=== PATIENT | male | born 1965 | race Caucasian/White ===

== ENCOUNTER 2018-09-01 07:15 | Observation (INO) | payer OTHER ==
[~2018-09-01] VITALS: Ht 172.7 cm; Wt 146.1 kg
--- NOTE | ~2018-09-01 | H ---
[facility] [place] [address] HISTORY AND PHYSICAL Name: DORIE OLIVER Room #: REG Nimisha Barrientos.#: [id number] Admission: 09/01/18 ������������������ Attend Phys: Christiano Childers MD, Discharge: ������������������ Date of : 67 Report #: [id number] THIS REPORT FOR: //name// CC: Christiano Greer DATE OF SERVICE: 09/01/2018 HISTORY OF PRESENT ILLNESS: The patient is a 53-year-old male, patient of Dr. Morton. He is in [place], [place]. He lives in [place]. He has a history of coronary artery disease with 2 prior stents placed to the same vessel, he believes the LAD in 2007 and 2009. He has been having some questionable recurrent symptoms and some possible claudication issue. Subsequently, when nuclear stress testing was suggested, moderate area of anterior wall ischemia. He has been compliant with his medications. 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 He has been a longstanding diabetic. CURRENT MEDICATIONS: Januvia 50, Bystolic 5, Jardiance 25, gabapentin, metformin 1000, fenofibrate, Protonix, glipizide, Celexa 40, lisinopril HCT 20/12.5 and atorvastatin 20. LABORATORY DATA: Creatinine of 1.1, potassium 4.3. H and H are 16 and 47. EKG sinus rhythm with T-wave inversions inferiorly and looks like possibly an old anterior infarct with marked delayed R waves. PAST MEDICAL HISTORY: Positive for diabetes, hypertension, hypercholesterolemia, coronary artery disease with prior stents, DJD, obesity, some intermittent vertigo. Mixed anxiety, depression disorder. SOCIAL HISTORY: He is , 3 kids. 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 No alcohol or tobacco use. REVIEW OF SYSTEMS: Negative except for some nocturia and frequency. As stated above. ALLERGIES: No drug allergies. PHYSICAL EXAMINATION: GENERAL: Pleasant, alert. VITAL SIGNS: Blood pressure 120/60, pulse 70s. HEENT: Eyes reveal xanthelasmas. Pharynx is clear. NECK: Shows preserved upstrokes without JVD or bruits. LUNGS: Clear. CARDIOVASCULAR: Regular rate and rhythm, S1, S2 distant. [facility] [address] [place] [address] HISTORY AND PHYSICAL Name: DORIE OLIVER Room #: REG [facility] [id number] Admission: 09/01/18 ������������������ Attend Phys: Christiano Childers MD, Discharge: ������������������ Date of : 67 Report #: [id number] ABDOMEN: Obese, nontender. No HSM. EXTREMITIES: Reveal trace of edema. Distal pulses diminished. Femoral pulses are quite medial. NEUROLOGIC: Nonfocal. SKIN: Warm and dry without xanthoma or ulcer. There are mild venous stasis changes in lower extremities. MUSCULOSKELETAL: Generalized arthritic changes. ASSESSMENT: 1. Coronary artery disease with abnormal nuclear stress test suggesting ischemia and subtle accelerating anginal pattern. 2. Hypertension. 3. Hypercholesterolemia. 4. Diabetes. 5. Morbid obesity. 6. Degenerative joint disease. 7. Sleep apnea. RECOMMENDATIONS AND PLAN: We will proceed to cardiac catheterization. Risks, benefits, alternatives discussed and intervention as indicated. ��������������������������������������������� ���������������������������������������� By: ��������������������������������������������� 0834 0854 Christiano Childers MD, FACC /nt
[2018-09-01 07:38] LABS: HEMATOCRIT 47.7 % (42.0-52.0); HEMOGLOBIN 16.3 gm/dL (14.0-18.0); MCH 29.2 pg (26.0-34.0); MCHC 34.2 g/dL (28.0-37.0); MCV 85.5 fL (80.0-100.0); RBC 5.58 mil/uL (4.50-6.00); RDW 13.3 % (10.5-14.5); WBC 8.1 thou/uL (4.0-11.0)
[2018-09-01 07:45] LABS: CALCIUM 9.6 mg/dL (8.5-10.1); CREATININE 1.1 mg/dL (0.7-1.3); POTASSIUM 4.3 mmol/L (3.5-5.1)
[2018-09-01 07:57] VITALS: BP 129/67
[2018-09-01] MEDS ORDERED: LIPITOR 20 MG T20 M1 PO (08:03)
[2018-09-01] MEDS ORDERED: BYSTOLIC 5 MG5 M1 PO (08:03)
[2018-09-01] MEDS ORDERED: ASPIR 8181 MG PO (08:03)
[2018-09-01] MEDS ORDERED: CELEXA40 MG PO (08:04)
[2018-09-01] MEDS ORDERED: NEURONTIN 300300 M1 PO (08:05)
[2018-09-01] MEDS ORDERED: GLIPIZIDE 10 MG10 MG PO (08:06)
[2018-09-01] MEDS ORDERED: JANUVIA 50 MG T50 M1 PO (08:07)
[2018-09-01] MEDS ORDERED: JARDIANCE25 MG PO (08:07)
[2018-09-01] MEDS ORDERED: METFORMIN HCL500 MG PO (08:09)
[2018-09-01] MEDS ORDERED: LISINOPRIL-HCT1 EAC2 PO (08:09)
[2018-09-01] MEDS ORDERED: PROTONIX40 M1 PO (08:09)
--- NOTE | 2018-09-01 09:39 | EKG ---
[place] [address] [facility] [place] [address] ELECTROCARDIOGRAM REPORT Name: DORIE OLIVERN [facility]: [facility] [id number] ������������������ Admission: 09/01/18 ������������������ Attend Phys: Christiano Childers MD, Discharge: ������������������ Date of : 67 Report #: [id number] ����������������������������������������������������������������� [id number] THIS REPORT FOR: //name// [facility] Test Date: 2018-09-01 Test Time: 07:51:46 Pat Name: DORIE OLIVER Department: Room: Gender: Supervisor Personnel Clerks: Heath PALUMBO : 1965 Requested By: Christiano Childers Order Number: [id number] MD: Freddy Ngo Measurements Intervals [place] Rate: 63 P: -6 IL: 210 QRS: -27 QRSD: 98 T: -28 QT: 413 QTc: 423 Interpretive Statements Sinus rhythm Prolonged [place] interval Poor R-wave progression Inferior infarct, age indeterminate Lateral leads are also involved No previous ECG available for comparison Electronically Signed On 09-01-2018 9:39:41 CDT by Freddy Ngo [email or web address] ��������������������������������������������� <ELECTRONICALLY SIGNED> ���������������������������������������� By: Freddy Ngo MD ��������������������������������������������� 09/01/18 0939 0751 0 Freddy Ngo MD /GABRIEL
--- NOTE | 2018-09-01 11:37 | EKG ---
[place] [address] [facility] [place] [address] ELECTROCARDIOGRAM REPORT Name: MELODYDORIE ALCANTARA [facility] #: [facility]Mona[facility] [id number] ������������������ Admission: 09/01/18 ������������������ Attend Phys: Christiano Childers MD, Discharge: ������������������ Date of : 67 Report #: [id number] ����������������������������������������������������������������� [id number] THIS REPORT FOR: //name// [facility] Test Date: 2018-09-01 Test Time: 10:25:01 Pat Name: DORIE OLIVER Department: Room: Gender: Document Clerk: Heath PALUMBO : 1965 Requested By: Christiano Childers Order Number: [id number] MD: Rahat Haley Measurements Intervals [place] Rate: 63 P: -12 HI: 207 QRS: -29 QRSD: 97 T: -28 QT: 421 QTc: 431 Interpretive Statements Sinus rhythm Borderline prolonged HI interval Abnormal R-wave progression, late transition Inferior infarct, age indeterminate Lateral leads are also involved Compared to ECG 09/01/2018 07:51:46 Poor R-wave progression no longer present Myocardial infarct finding still present Electronically Signed On 09-01-2018 11:37:40 CDT by Rahat Haley [email or web address] ��������������������������������������������� <ELECTRONICALLY SIGNED> ���������������������������������������� By: Rahat Haley MD ��������������������������������������������� 09/01/18 1137 1025 1025 Rahat Haley MD /EPI
[2018-09-01 20:06] VITALS: BP 141/74
[2018-09-01 23:57] VITALS: BP 116/50
--- NOTE | 2018-09-01 23:59 | NUR ---
ASSESSMENTS CHARTED. PATIENT OFF BEDREST AND UP AT NEGIN. RIGHT GROIN SIDE IS CLEAN, DRY, INTACT AND SOFT. PATIENT RECEIVED STENT TO RCA. PATIENT IS HOPING TO GO HOME IN AM.
[2018-09-02 04:51] LABS: ALBUMIN 3.2 g/dL (3.4-5.0); ANION GAP 8 mmol/L (7-16); BUN 21 mg/dL (7-18); CALCIUM 8.8 mg/dL (8.5-10.1); CHLORIDE 103 mmol/L (98-107); CHOLESTEROL 144 mg/dL (<200); CO2 28 mmol/L (21-32); CREATININE 0.9 mg/dL (0.7-1.3); GLUCOSE 139 mg/dL (74-106); HDL CHOLESTEROL 29 mg/dL (>40); LDL CHOLESTEROL 72 mg/dL (<100); POTASSIUM 4.1 mmol/L (3.5-5.1); SGOT 13 U/L (15-37); SGPT 17 U/L (30-65); SODIUM 139 mmol/L (136-145); TOTAL PROTEIN 6.4 g/dL (6.4-8.2); TRIGLYCERIDE 216 mg/dL (<150); TROPONIN-I 0.14 ng/mL (<0.06); VLDL 43 mg/dL (<40)
[2018-09-02 05:06] VITALS: BP 128/56
[2018-09-02 05:15] LABS: SERUM ASSESSMENT Slight Lipemia
[2018-09-02 05:37] LABS: HEMATOCRIT 44.8 % (42.0-52.0); HEMOGLOBIN 15.2 gm/dL (14.0-18.0); MCH 29.5 pg (26.0-34.0); MCV 86.7 fL (80.0-100.0); RBC 5.17 mil/uL (4.50-6.00); RDW 12.9 % (10.5-14.5); WBC 6.6 thou/uL (4.0-11.0)
[2018-09-02 07:10] VITALS: BP 138/73
[2018-09-02] MEDS ORDERED: LIPITOR 20 MG T20 M1 PO (07:39)
[2018-09-02] MEDS ORDERED: EFFIENT10 MG PO (07:39)
[2018-09-02] MEDS ORDERED: ASPIR 8181 MG PO (07:39)
[2018-09-02 09:27] VITALS: BP 138/73
--- NOTE | 2018-09-02 10:43 | NUR ---
ASSESSMENT DOCUMENTED. PT ALERT AND ORIENTED. VSS. DENIED HAVING PAIN OR DISCOMFORT. SEEN BY DR. CHAN. ORDERS GIVEN TO DISCHARGE PT TO HOME. DISCHARGE INSTRUCTIONS GIVEN TO PT. PT VERBERLIZE UNDERSTANDING. PT LEFT THE FACILITY ACCOMPANIED BY THE .
--- NOTE | 2018-09-02 15:02 | CATHLAB ---
[facility] [address] [place] [address] INVASIVE PROCEDURE REPORT Name: DORIE OLIVERN Room #: 211-P [facility] M.R.#: [id number] ������������� Admission: 09/01/18 ������������� Attend Phys: Christiano Childers, Discharge: ��� 09/02/18 ������������� ��� Date of : 67 Date of Service: 09/02/18 1502 �� Report #: [id number] �������� ��������������������������������������������[id number] THIS REPORT FOR: //name// APPROVED REPORT Study performed: 09/01/2018 08:25:25 Patient Details The patient is a 53 year-old male Event Personnel Christiano Childers Slitter Scorer Cut Off Operator, Cristobal Lowery RN, Jahaira Starks, Lauro Lambert Monitor Procedures Performed Left Heart Cath w/or w/o Coronaries 8108341 [facility] [address] [facility] w/wo Plasty Single RCA 583396 Indication Chest pain Procedure Narrative The Right Groin^ was infiltrated with 1% Lidocaine subcutaneous anesthesia. A PINNACLE 6FR TIF Sheath #006944 sheath was inserted into the RFA^. Coronary angiography was performed using coronary diagnostic catheters. The right coronary system was accessed and visualized with a JR4 catheter. The left coronary system was accessed and visualized with a JL4 catheter. The left ventricle was accessed and visualized with a PIGTAIL catheter. Closure device was deployed with a Fr MYNXGRIP 6/7F #[id number]. The patient tolerated the procedure well and there were no complications associated with the procedure. There was no hematoma. Intraoperative Conscious Sedation Sedation start time: 832 Case end Time: 939 Fentanyl 200 mcg Versed 4 mg Fluoro Time: 17.31 minutes Dose: DAP 86362.00 cGycm2 5475 mGy Contrast Type and Amount: Omnipaque 295 ml Hemodynamics The aortic pressure is 137/82 mmHg with a mean of mmHg. The left ventricular pressure is 131/17 mmHg with a mean of mmHg. The left [facility] [place] [address] INVASIVE PROCEDURE REPORT Name: MELODYDORIE MARICRUZ Room #: 211-P [facility] M.R.#: [id number] ������������� Admission: 09/01/18 ������������� Attend Phys: Christiano Childers, Discharge: ��� 09/02/18 ������������� ��� Date of : 67 Date of Service: 09/02/18 1502 �� Report #: [id number] �������� ��������������������������������������������[id number] ventricular end diastolic pressure is 35 mmHg. PCI Technique Lesion Anticoagulation was achieved with Heparin. Percutaneous coronary intervention was performed on the mistal right coronary artery. A LAUNCHER 6FR JR 4 #[id number] Guide Catheter was used to engage the ostium. A Luge Wire .014 x 182CM #[id number] Interventional Guidewire was used to cross the lesion. BALLOON DILATION A Balloon catheter Sprinter OTW 2.25 x 12 #[id number] was inserted and inflated up to 10.00atm for 24seconds. Additional Inflation: 10.00atm for 22seconds. Additional Inflation: 14.00atm for 16seconds. STENT DEPLOYMENT A stent RESOLUTE ANGEL OTW 2.5 X 15 #[id number] was inserted and inflated up to 15.00atm for 20seconds. POST STENT DEPLOYMENT BALLOON DILATION A Balloon catheter Sprinter OTW 2.25 x 12 #[id number] was inserted and inflated up to serg for seconds. Additional Inflation: 12.00atm for 24seconds. Additional Inflation: 14.00atm for 27seconds. Conclusion #1 successful PTCA stent of a distal RCA chronic total occlusion placement of a 2.5 x 15 resolute Angel drug-eluting stent GARCIA grade 3 flow (moderate mid vessel disease 40-50%) with debris #2 successful PTCA of the ostial PDA just distal to the stent placement 80% to 20% with markedly improved distal flow #3 left main short mild disease giving rise to LAD and circumflex #4 LAD is proximally placed to prior stents right at the septal takeoff there is a focal in-stent restenosis of 80-90%. Mild diffuse disease distally #5 circumflex OM is nondominant moderate size no significant disease #6 normal left ventricular size with inferior basilar hypokinesis EF 50-55% #7 abdominal aortogram revealing no evidence of aneurysm mild calcification is noted. Conditions and plan: Patient underwent successful PTCA of the ACOUSTIC SENSOR OPERATOR the distal right. Prolonged procedure complicated. Patient will need intervention to the proximal in-stent restenosis. Focal area within the prior stents This vessel and appears to be best served with a laser atherectomy. I [facility] [address] [place] [address] INVASIVE PROCEDURE REPORT Name: DORIE OLIVER Room #: 211-P [facility] M.R.#: [id number] ������������� Admission: 09/01/18 ������������� Attend Phys: Christiano Childers, Discharge: ��� 09/02/18 ������������� ��� Date of : 67 Date of Service: 09/02/18 1502 �� Report #: [id number] �������� ��������������������������������������������[id number] will perform this at a staged procedure have Dr. Ngo perform will be arranged for later date. Transfer to CCU in stable condition dual antiplatelet therapy to continue indefinitely. ��������������������������������������������� <ELECTRONICALLY SIGNED> ���������������������������������������� By: Christiano Childers MD, [facility] ��������������������������������������������� 09/02/18 1502 1502 1502 Christiano Childers MD, FACC /INF
--- NOTE | 2018-09-02 16:13 | EKG ---
[address] [place] [address] ELECTROCARDIOGRAM REPORT Name: DORIE OLIVER Room #: 211-[facility] M.R.#: [id number] ������������������ Admission: 09/01/18 ������������������ Attend Phys: Christiano Childers MD, Discharge: 09/02/18 ������������������ Date of : 67 Report #: [id number] ����������������������������������������������������������������� [id number] THIS REPORT FOR: //name// [facility] Test Date: 2018-09-02 Test Time: 07:42:01 Pat Name: DORIE OLIVER Department: Room: 211 P Gender: M Vocational Auto Body Instructor: KENAN : 1965 Requested By: Christiano Childers Order Number: [id number] MD: Freddy Ngo Measurements Intervals [place] Rate: 62 P: -3 HI: 206 QRS: -29 QRSD: 94 T: -23 QT: 417 QTc: 424 Interpretive Statements Sinus rhythm Borderline prolonged HI interval Inferior infarct, age indeterminate Compared to ECG 09/01/2018 10:25:01 No significant changes Electronically Signed On 09-02-2018 16:13:43 CDT by Freddy Ngo [email or web address] ��������������������������������������������� <ELECTRONICALLY SIGNED> ���������������������������������������� By: Freddy Ngo MD ��������������������������������������������� 09/02/18 1613 0742 Freddy Ngo MD /GABRIEL
== END 2018-09-02 10:54 | disposition home or self-care (01) ==
LOC: CATH 07:15 → 2N 14:53 → ENTRNSPT 09-02 10:36 → 2N 09-02 10:54
PROVIDERS: ADMIT Internal Medicine Cardiovascular Disease
DX: I25.10 Atherosclerotic heart disease of native coronary artery without angina pectoris (principal); I10 Essential (primary) hypertension; E78.00 Pure hypercholesterolemia, unspecified; E11.9 Type 2 diabetes mellitus without complications; E66.01 Morbid (severe) obesity due to excess calories; M19.90 Unspecified osteoarthritis, unspecified site; G47.30 Sleep apnea, unspecified; F41.9 Anxiety disorder, unspecified; F32.9 Major depressive disorder, single episode, unspecified

== ENCOUNTER 2018-09-13 07:38 | Outpatient (CLI) | payer OTHER ==
[2018-09-13] VITALS (8 sets, daily range): BP systolic 97–129; BP diastolic 47–74
[~2018-09-13] VITALS: Ht 172.7 cm; Wt 144.2 kg
[~2018-09-13 07:38] MED LIST: ASPIR 8181 MG PO; BYSTOLIC 5 MG5 M1 PO; CELEXA40 MG PO; EFFIENT10 MG PO; GLIPIZIDE 10 MG10 MG PO; JANUVIA 50 MG T50 M1 PO; JARDIANCE25 MG PO; LIPITOR 20 MG T20 M1 PO; LISINOPRIL-HCT1 EAC2 PO; METFORMIN HCL500 MG PO; NEURONTIN 300300 M1 PO; PROTONIX40 M1 PO
--- NOTE | 2018-09-13 08:51 | EKG ---
[address] [address] ELECTROCARDIOGRAM REPORT Name: DORIE OLIVER MARICRUZ [facility] [id number] ������������������ Admission: 09/13/18 ������������������ Attend Phys: Freddy Ngo MD Discharge: ������������������ Date of : 67 Report #: [id number] ����������������������������������������������������������������� [id number] THIS REPORT FOR: //name// [facility] Test Date: 2018-09-13 Test Time: 08:08:56 Pat Name: DORIE OLIVER Department: Room: Gender: Senior Project Coordinator: Rustam TALBOT : 1965 Requested By: Freddy Ngo Order Number: [id number] MD: Rahat Haley Measurements Intervals [place] Rate: 60 P: -5 DE: 218 QRS: -29 QRSD: 99 T: -31 QT: 418 QTc: 418 Interpretive Statements Sinus rhythm Prolonged [place] interval Inferior infarct, age indeterminate Compared to ECG 09/02/2018 07:42:01 Electronically Signed On 09-13-2018 8:51:22 CDT by Rahat Haley [email or web address] ��������������������������������������������� <ELECTRONICALLY SIGNED> ���������������������������������������� By: Rahat Haley MD ��������������������������������������������� 09/13/18 0851 807 7 Rahat Haley MD /GABRIEL
[2018-09-13 08:54] LABS: HEMATOCRIT 46.5 % (42.0-52.0); HEMOGLOBIN 16.1 gm/dL (14.0-18.0); MCH 29.3 pg (26.0-34.0); MCHC 34.6 g/dL (28.0-37.0); MCV 84.9 fL (80.0-100.0); RBC 5.48 mil/uL (4.50-6.00); RDW 13.4 % (10.5-14.5)
[2018-09-13 09:02] LABS: CALCIUM 9.4 mg/dL (8.5-10.1); POTASSIUM 3.8 mmol/L (3.5-5.1)
--- NOTE | 2018-09-13 15:34 | CATHLAB ---
[facility] [place] [address] [place] [address] INVASIVE PROCEDURE REPORT Name: DORIE OLIVER Room #: 200-I REG [facility]#: [id number] ������������� Admission: 09/13/18 ������������� Attend Phys: Freddy Ngo MD Discharge: ��� ������������� ��� Date of : 67 Date of Service: 09/13/18 1534 �� Report #: [id number] �������� ��������������������������������������������[id number] THIS REPORT FOR: //name// APPROVED REPORT Study performed: 09/13/2018 09:54:00 Patient Details Patient Status: Out-Patient Room #: The patient is a 53 year-old male Event Personnel Freddy Ngo Supervisor [employer], Camelia Cook RN, Hortencia Concepcion RN RN, Deyanira Lebron Monitor, Jahaira Starks HYDROELECTRIC PLANT STRUCTURAL ENGINEER Scrub Procedures Performed Art Access - R radial artery Atherectomy w/wo Plasty Sgl LAD 4526723 ATHSINGLE PTCA Single Vessel LAD 4437651 PCISINGLE Hemostasis with Hemoband 59900 Initial Mod Sed Same Phys/QHP Gr5y 568747 16362 Mod Sed Same Phys/QHP Ea 668438 Indication Dyspnea, Positive stress test, Chest pain Risk Factors Obesity, Hypercholesterolemia, Coronary Artery DiseaseHypertension, Diabetes Previous Procedures/Diagnoses Previous PCI Procedure Narrative The patient was brought electively to the Cardiac Catheterization Laboratory and was prepped and draped in a sterile manner. The Right Wrist^ was infiltrated with subcutaneous anesthesia. A TRANSRADIAL SLENDER 6F GLIDESHEATH KIT #173085 sheath was inserted into the Right Radial Artery^. Coronary angiography was performed using coronary diagnostic catheters. The left coronary system was accessed and visualized with a VISTA 6FR JL3.5 #516671 catheter. Closure device was deployed with a Fr VASC BAND L 27CM #758984. The patient tolerated the procedure well and there were no complications associated with the procedure. There was no hematoma. Intraoperative Conscious Sedation [address] [address] INVASIVE PROCEDURE REPORT Name: MELODYDORIE SIMONSN Room #: 200-I [facility]#: [id number] ������������� Admission: 09/13/18 ������������� Attend Phys: Freddy Ngo MD Discharge: ��� ������������� ��� Date of : 67 Date of Service: 09/13/18 1534 �� Report #: [id number] �������� ��������������������������������������������[id number] Sedation start time: 10:11 Case end Time: 11:01 Fentanyl 50 mcg Versed 1 mg Fluoro Time: 13.29 minutes Dose: DAP 50047.00 cGycm2 2655 mGy Contrast Type and Amount: Omnipaque 90 ml Coronary Angiography The patient's coronary anatomy is right dominant. Diagnostic Cath LAD The diagnostic artery catheterization was performed several weeks prior. He was found to have a severe restenotic lesion in the proximal LAD stent. PCI Technique Lesion Anticoagulation was achieved with Angiomax. Percutaneous coronary intervention was performed on the proximal left anterior descending artery segment. The lesion stenosis prior to intervention was 80% with GARCIA 3 flow. A VISTA 6FR JL3.5 #279253 Guide Catheter was used to engage the ostium. A Luge Wire .014 x 182CM #[id number] Interventional Guidewire was used to cross the lesion. BALLOON DILATION A Balloon catheter ANGIOSCULPT RX 2.0MM X 10MM SCORING BALLOON #[id number] was inserted and inflated up to 14.00atm for 69seconds. Additional Inflation: 14.00atm for 57seconds. After placement of a luge wire down the LAD, laser atherectomy was performed with 3 passes. The details as described below. This was followed by balloon angioplasty with an angiosculpt cutting balloon. Final angiography reveals 10 % stenosis with GARCIA 3 flow. COMMENTS Laser 2 runs times 10 seconds at 60 confluence/60 rotations Laser 1 run times 10 seconds at 80 confluence/80 rotations Conclusion 1. Successful atherectomy using an Excimer laser catheter, followed by an angiosculpt cutting balloon in the proximal LAD restenotic lesion. [address] [address] INVASIVE PROCEDURE REPORT Name: DORIE OLIVER Room #: 200-I [facility] M.R.#: [id number] ������������� Admission: 09/13/18 ������������� Attend Phys: Freddy Ngo MD Discharge: ��� ������������� ��� Date of : 67 Date of Service: 09/13/18 1534 �� Report #: [id number] �������� ��������������������������������������������[id number] 2. Recommend dual antiplatelet therapy and aggressive risk factor management. ��������������������������������������������� <ELECTRONICALLY SIGNED> ���������������������������������������� By: Freddy Ngo MD ��������������������������������������������� 09/13/18 1534 1534 1534 Freddy Ngo MD /INF
[2018-09-14 00:32] VITALS: BP 117/62
[2018-09-14 03:47] LABS: HEMATOCRIT 46.2 % (42.0-52.0); HEMOGLOBIN 15.9 gm/dL (14.0-18.0); MCH 29.6 pg (26.0-34.0); MCHC 34.4 g/dL (28.0-37.0); RBC 5.37 mil/uL (4.50-6.00); RDW 13.1 % (10.5-14.5); WBC 7.6 thou/uL (4.0-11.0)
[2018-09-14 04:01] LABS: ALBUMIN 3.3 g/dL (3.4-5.0); CALCIUM 9.1 mg/dL (8.5-10.1); POTASSIUM 3.6 mmol/L (3.5-5.1); TOTAL BILIRUBIN 0.8 mg/dL (<0.1-1.0); TOTAL PROTEIN 6.6 g/dL (6.4-8.2)
[2018-09-14 04:15] VITALS: BP 113/51
[2018-09-14 08:00] VITALS: BP 126/69
--- NOTE | 2018-09-14 09:10 | EKG ---
[place] [address] [facility] [place] [address] ELECTROCARDIOGRAM REPORT Name: DORIE OLIVER Room #: 200-I [facility]#: [id number] ������������������ Admission: 09/13/18 ������������������ Attend Phys: Freddy Ngo MD Discharge: ������������������ Date of : 67 Report #: [id number] ����������������������������������������������������������������� [id number] THIS REPORT FOR: //name// [facility] Test Date: 2018-09-13 Test Time: 14:18:33 Pat Name: DORIE OLIVER Department: Room: Gender: M Carpenter/Labor: KENAN : 1965 Requested By: Freddy Ngo Order Number: [id number] MD: Emir Solomon Measurements Intervals [place] Rate: 66 P: -12 NC: 224 QRS: -35 QRSD: 108 T: -39 QT: 413 QTc: 433 Interpretive Statements Sinus rhythm Ventricular premature complex Prolonged [place] interval Abnormal R-wave progression, late transition Inferior infarct, old Compared to ECG 09/13/2018 08:08:56 Ventricular premature complex(es) now present Electronically Signed On 09-14-2018 9:10:15 CDT by Emir Solomon [email or web address] ��������������������������������������������� <ELECTRONICALLY SIGNED> ���������������������������������������� By: Emir Solomon MD, [facility] ��������������������������������������������� 09/14/18 0910 1418 1418 Emir Solomon MD, [facility] /EPI
[2018-09-14 09:47] VITALS: BP 126/69
--- NOTE | 2018-09-14 16:56 | EKG ---
[place] [address] [facility] [place] [address] ELECTROCARDIOGRAM REPORT Name: DORIE OLIVER Room #: [facility] [id number] ������������������ Admission: 09/13/18 ������������������ Attend Phys: Freddy Ngo MD Discharge: 09/14/18 ������������������ Date of : 67 Report #: [id number] ����������������������������������������������������������������� [id number] THIS REPORT FOR: //name// [facility] Test Date: 2018-09-14 Test Time: 08:31:24 Pat Name: DORIE OLIVER Department: Room: 200 I Gender: M Belt Molder: Rustam TALBOT : 1965 Requested By: Freddy Ngo Order Number: [id number] MD: Emir Solomon Measurements Intervals [place] Rate: 61 P: -20 AR: 211 QRS: -36 QRSD: 105 T: -34 QT: 433 QTc: 437 Interpretive Statements Sinus rhythm Prolonged [place] interval Abnormal R-wave progression, late transition Inferior infarct, old Compared to ECG 09/13/2018 08:08:56 No significant changes Electronically Signed On 09-14-2018 16:56:28 CDT by Emir Solomon [email or web address] ��������������������������������������������� <ELECTRONICALLY SIGNED> ���������������������������������������� By: Emir Solomon MD, [facility] ��������������������������������������������� 09/14/18 1656 0831 Emir Solomon MD, [facility] /EPI
--- NOTE | 2018-09-15 15:18 | D ---
[facility] [place] [address] DISCHARGE SUMMARY Name: MELODYDORIE MARICRUZ Room #: DEP JOHANNE Juarez#: [id number] Admission: 09/13/18 ������������������ Attend Phys: Freddy Ngo MD Discharge: 09/14/18 ������������������ Date of : 67 Report #: [id number] THIS REPORT FOR: //name// CC: Carlos Manuel Ngo DATE OF SERVICE: 09/14/2018 FINAL DIAGNOSES: 1. Coronary artery disease, status post percutaneous coronary intervention. 2. Diabetes mellitus. 3. Hypertension. 4. Hypercholesterolemia. 5. Obesity. HOSPITAL COURSE: Please see the original H and P for full details. He has a previous history of stent placement to the LAD approximately 9 years ago. He recently presented to [facility] with chest pains. A nuclear stress test revealed anterior ischemia. About 2 weeks ago, he underwent a cardiac catheterization, found to have a severe occlusion in the proximal LAD stent and total occlusion in the distal RCA. Angioplasty was performed with placement of stents in the distal RCA by Dr. Childers. He presented yesterday for a staged angioplasty procedure. The stent in the proximal LAD had a severe re-stenotic lesion. Atherectomy with Excimer laser catheter was performed. This was followed with a balloon dilatation using an AngioSculpt cutting balloon. The patient remained hemodynamically stable. He denies any chest pains overnight. He will be discharged home today and follow up with Dr. Alex Morton at [facility]. FINAL DISPOSITION: Bystolic 5 mg daily, Celexa 40 mg daily, Neurontin, glipizide, Januvia, Jardiance, lisinopril and hydrochlorothiazide once a day, metformin to be resumed, Protonix, Effient 10 mg, Lipitor 40 mg daily and aspirin once a day. ��������������������������������������������� <ELECTRONICALLY SIGNED> ���������������������������������������� By: Freddy Ngo MD ��������������������������������������������� 09/15/18 1518 [id number] Freddy Ngo MD /nt
== END 2018-09-14 10:53 | disposition home or self-care (01) ==
LOC: CATH 07:38 → 2N 15:07 → CATH 09-14 10:53
PROVIDERS: Internal Medicine Cardiovascular Disease
DX: I25.10 Atherosclerotic heart disease of native coronary artery without angina pectoris (principal); I10 Essential (primary) hypertension; E11.9 Type 2 diabetes mellitus without complications; E78.00 Pure hypercholesterolemia, unspecified; E66.9 Obesity, unspecified; K21.9 Gastro-esophageal reflux disease without esophagitis; G47.30 Sleep apnea, unspecified; F41.9 Anxiety disorder, unspecified; Z95.5 Presence of coronary angioplasty implant and graft; Z79.899 Other long term (current) drug therapy; Z98.890 Other specified postprocedural states; Z79.01 Long term (current) use of anticoagulants; Z82.49 Family history of ischemic heart disease and other diseases of the circulatory system; Z86.73 Personal history of transient ischemic attack (TIA), and cerebral infarction without residual deficits; Z79.82 Long term (current) use of aspirin
CPT/HCPCS: 10081